=== PATIENT | female | born 1965 | race Caucasian/White ===

== ENCOUNTER → 2023-11-06 | Emergency (ER) | payer OTHER ==
[~2023-11-06] MED LIST: ASPIRIN 325 MG TAB ONE
--- NOTE | 2023-11-06 11:56 | RAD REPORT ---
EXAM DESCRIPTION: CT - Ct Stroke Brain Wo Cont - 11/06/2023 11:44 am CLINICAL HISTORY: STROKE ALERT COMPARISON: No comparisons TECHNIQUE: Noncontrast head CT images were obtained without IV contrast. Multiplanar reformats were generated and reviewed. All CT scans are performed using dose optimization technique as appropriate and may include automated exposure control or mA/KV adjustment according to patient size. FINDINGS: No intracranial hemorrhage, mass, or edema. Midline structures are unremarkable. Normal ventricular caliber for age. Rothman-white matter differentiation is preserved, without evidence of acute infarct. No abnormal extra- axial fluid collections. Mastoid air cells and visualized portions of the paranasal sinuses are clear. No acute bony findings. IMPRESSION: No evidence of an acute intracranial process.
--- NOTE | 2023-11-06 11:58 | RAD REPORT ---
EXAM DESCRIPTION: CT - Head angio - 11/06/2023 11:44 am CLINICAL HISTORY: NUMBNESS COMPARISON: Ct Stroke Brain Wo Cont dated 11/06/2023 TECHNIQUE: Axial CT angiography images of the head was performed with multiplanar and maximum intens ity projection reconstructions. Images performed following intravenous administration of 100mL Isovue 370. All CT scans are performed using dose optimization technique as appropriate and may include automated exposure control or mA/KV adjustment according to patient size. FINDINGS: No evidence of large vessel occlusion. No evidence of aneurysm or dissection flap is detec juvenal. No flow-limiting stenosis or vascular malformation identified. Antegrade flow is seen in the vertebral arteries. The vertebral arteries are codominant. The visualized dural venous sinuses are grossly patent. IMPRESSION: No evidence of large vessel occlusion or flow-limiting stenosis.
--- NOTE | 2023-11-06 12:01 | RAD REPORT ---
EXAM DESCRIPTION: CT - Neck Angio - 11/06/2023 11:44 am CLINICAL HISTORY: NUMBNESS COMPARISON: No comparisons TECHNIQUE: Axial CT angiography images of the head was performed with multiplanar and maximum intens ity projection reconstructions. Images performed following intravenous administration of 100mL Isovue 370. All CT scans are performed using dose optimization technique as appropriate and may include automated exposure control or mA/KV adjustment according to patient size. Quantification of carotid stenosis, if any, is performed according to NASCET criteria. FINDINGS: A left aortic arch is identified with normal three vessel configuration of the great vesse ls. No significant flow abnormality is seen of the common carotid bilaterally. No significant stenosis is identified involving the cervical segments of both internal carotid arteri es. Normal flow is seen within both vertebral arteries. IMPRESSION: No significant flow abnormality of the neck vessels is identified. The findings regarding the entire stroke workup were communicated to Kash Thomson on 11/06/2023 at 11:56 hours. CAROTID STENOSIS REFERENCE USING NASCET CRITERIA: % ICA stenosis = (1 - narrowest ICA diameter/diameter of distal cervical ICA) x 100. Mild - <50% stenosis. Moderate - 50-69% stenosis. Severe - 70-94% stenosis. Near occlusion - 95-99% stenosis. Occluded - 100% stenosis.
[2023-11-06 12:05] LABS: Absolute Lymphocytes (CBC) 1.4 K/uL (0.7-4.9); Hematocrit 37.8 % (36.0-45.0); Lymphocytes % 36.5 % (15.3-44.8); MCV 97.5 fL (80-100); Platelets 249 thou/uL (152-406); RBC Red Blood Cell Count 3.87 M/uL (3.86-4.86)
[2023-11-06 12:15] LABS: Protime INR 1.12
--- NOTE | 2023-11-06 12:17 | RAD REPORT ---
EXAM DESCRIPTION: [place] Single View11/06/2023 12:12 pm CLINICAL HISTORY: numbness COMPARISON: No comparisons TECHNIQUE: Portable AP view of the chest. FINDINGS: The lungs are clear. No pneumothorax or effusion. The cardiomediastinal contours are unre markable. IMPRESSION: No acute cardiopulmonary process.
[2023-11-06 12:31] LABS: ALT/SGPT 16 U/L (13-56); AST/SGOT 22 U/L (15-37); Albumin 3.3 g/dL (3.4-5.0); Alkaline Phosphatase 56 U/L (45-117); BUN Blood Urea Nitrogen 18 mg/dL (7-18); Bicarbonate 26 mEq/L (21-32); Bilirubin Direct 0.1 mg/dL (0-0.2); Bilirubin Indirect, Calculated 0.3 mg/dL (0.2-0.8); Bilirubin Total 0.4 mg/dL (0.2-1.0); Glomerular Filtration Rate 78 ml/min (=/>90); Glucose Level 90 mg/dL (74-106); Magnesium 2.1 mg/dL (1.6-2.4); Potassium 4.2 mEq/L (3.5-5.1); Protein, Total 6.4 g/dL (6.4-8.2); Sodium Level 135 mEq/L (136-145)
[2023-11-06 12:37] LABS: Troponin High Sensitivity < 3.0 pg/mL (<58.9)
--- NOTE | 2023-11-06 13:43 | EDPHYS ---
Physician Documentation [facility] Name: Vilma Dooley Age: 57 yrs Sex: Female : 1965 Arrival Date: 11/06/2023 Time: 11:14 Bed 19 Private MD: ED Physician Kash Thomson HPI: 11/06 14:19 This 57 yrs old Female presents to ER via EMS with complaints of Dizziness, Headache, rt Nausea. 14:19 Patient presents to the ED with about 4 days of numbness. Patient reports a total body rt numbness, worse on the left compared to the right. She was seen at [facility] where she was more dizzy at that time and vertiginous, recommended that she stay in the hospital at home, left subsequently. States that the symptoms have worsened today, however, she is no longer vertiginous. Symptoms are moderate in severity, no other aggravating relieving factors. Historical: - Home Meds: 11:59 atorvastatin 40 mg oral tablet every day at bedtime [Active]; citalopram 40 mg tablet iw daily [Active]; cyclobenzaprine 10 mg Oral tablet 3 times per day [Active]; diclofenac sodium 1 % topical gel 4 times per day [Active]; gabapentin 300 mg oral capsule 3 times per day [Active]; quetiapine 25 mg oral tablet once at bedtime [Active]; varenicline 1 mg oral tablet 2 times per day [Active]; - Immunization history:: Adult Immunizations up to date. - Social history:: Smoking status: unknown. - Family history:: not pertinent. ROS: 14:19 Constitutional: Negative for fever, chills, and weight loss, Cardiovascular: Negative rt for chest pain, palpitations, and edema, Respiratory: Negative for shortness of breath, cough, wheezing, and pleuritic chest pain, Abdomen/GI: Negative for abdominal pain, nausea, vomiting, diarrhea, and constipation, MS/Extremity: Negative for injury and deformity, Skin: Negative for injury, rash, and discoloration, Psych: Negative for depression, anxiety, suicide ideation, homicidal ideation, and hallucinations, 14:19 Neuro: Positive for numbness, speech changes, Exam: 14:19 Constitutional: This is a well developed, well nourished patient who is awake, alert, rt and in no acute distress. Head/Face: Normocephalic, atraumatic. Chest/axilla: Normal chest wall appearance and motion. Nontender with no deformity. No lesions are appreciated. Cardiovascular: Regular rate and rhythm with a normal S1 and S2. No gallops, murmurs, or rubs. Normal PMI, no JVD. No pulse deficits. Respiratory: Lungs have equal breath sounds bilaterally, clear to auscultation and percussion. No rales, rhonchi or wheezes noted. No increased work of breathing, no retractions or nasal flaring. Abdomen/GI: Soft, non-tender, with normal bowel sounds. No distension or tympany. No guarding or rebound. No evidence of tenderness throughout. Skin: Warm, dry with normal turgor. Normal color with no rashes, no lesions, and no evidence of cellulitis. MS/ Extremity: Pulses equal, no cyanosis. Neurovascular intact. Full, normal range of motion. Psych: Awake, alert, with orientation to person, place and time. Behavior, mood, and affect are within normal limits. 14:19 ECG was reviewed by the Attending Physician. 14:19 Neuro: Slight slurred speech, numbness on the left compared to the right on the face, arm, leg. No ataxia [id number], no visual field deficits, cranial nerves II through XII intact otherwise, Vital Signs: 11:32 BP 129 / 86; Pulse 72; Resp 16; Pulse Ox 96% on R/A; iw 13:25 BP 158 / 99; Pulse 72; Resp 16; Pulse Ox 99% on R/A; me1 14:30 BP 126 / 95; Pulse 78; Resp 14; Pulse Ox 99% on R/A; me1 16:30 BP 100 / 86; Pulse 79; Resp 18; Pulse Ox 100% on R/A; me1 MDM: 11:18 Patient medically screened. rt 14:19 Differential diagnosis: CVA, TIA, vertigo, intravascular volume depletion, electrolyte rt disturbance. Data reviewed: vital signs, nurses notes, lab test result(s), EKG, radiologic studies. Consideration of Admission/Observation Patient was admitted/placed on observation. [facility]. Counseling: I had a detailed discussion with the patient and/or guardian regarding the historical points, exam findings, and any diagnostic results supporting the discharge/admit diagnosis, lab results, radiology results, the need for further work-up and treatment in the hospital. 11/06 11:27 Order name: Basic Metabolic Panel; Complete Time: 12:41 rt 11/06 11:27 Order name: CBC with Diff; Complete Time: 12:22 rt 11/06 11:27 Order name: Hepatic Function; Complete Time: 12:41 rt 11/06 11:27 Order name: High Sensitivity Troponin; Complete Time: 12:41 rt 11/06 11:27 Order name: Magnesium; Complete Time: 12:41 rt 11/06 11:27 Order name: Protime (+inr); Complete Time: 12:22 rt 11/06 11:27 Order name: Ptt, Activated; Complete Time: 12:22 rt 11/06 11:27 Order name: TSH; Complete Time: 12:41 rt 11/06 12:00 Order name: CREATININE WHOLE BLOOD; Complete Time: 12:22 EDMS 11/06 11:27 Order name: CT Head Angio; Complete Time: 12:22 rt 11/06 11:27 Order name: CT Neck Angio; Complete Time: 12:22 rt 11/06 11:27 Order name: CT Stroke Brain w/o Contrast; Complete Time: 12:22 rt 11/06 11:27 Order name: Stroke CXR 1 View; Complete Time: 12:22 rt 11/06 11:27 Order name: EKG; Complete Time: 11:27 rt 11/06 11:27 Order name: Accucheck; Complete Time: 13:19 rt 11/06 11:27 Order name: Cardiac monitoring; Complete Time: 13:19 rt 11/06 11:27 Order name: EKG - Nurse/Tech; Complete Time: 13:19 rt 11/06 11:27 Order name: IV Saline Lock; Complete Time: 12:00 rt 11/06 11:27 Order name: Labs collected and sent; Complete Time: 12:00 rt 11/06 11:27 Order name: NPO; Complete Time: 13:19 rt 11/06 11:27 Order name: O2 Per Protocol; Complete Time: 12:00 rt 11/06 11:27 Order name: O2 Sat Monitoring; Complete Time: 12:00 rt 11/06 11:27 Order name: Stroke Swallow Screen; Complete Time: 13:19 rt EC:19 Rate is 71 beats/min. Rhythm is regular, Normal Sinus Rhythm with No ectopy. QRS [place] rt is Normal. [place] interval is normal. QRS interval is normal. QT interval is normal. No Q waves. T waves are Normal. No ST changes noted. Interpreted by me. Administered Medications: 15:57 Drug: Aspirin PO 325 mg PO once Route: PO; me1 16:23 Follow up: Response: No adverse reaction me1 18:01 Follow up: Response: No adverse reaction me1 Disposition Summary: 11/06/23 13:42 Transfer Ordered Notes: Transfer Location: [facility] rt Reason: Patient request rt Condition: Stable rt Problem: new rt Symptoms: are unchanged rt Accepting Physician: (11/06/23 18:01) me1 Diagnosis - Left-sided numbness rt Forms: - Medication Reconciliation Form rt - SBAR form rt Signatures: Dispatcher [employer] Yolette Riggs RN RN iw Kash Thomson MD MD rt Batool Campbell RN RN me1 Corrections: (The following items were deleted from the chart) 18: 13:42 rt me1
--- NOTE | 2023-11-06 13:43 | ER ---
Nurse's Notes [facility] Name: Vilma Dooley Age: 57 yrs Sex: Female : 1965 Arrival Date: 11/06/2023 Time: 11:14 Bed 19 Private MD: Diagnosis: Left-sided numbness Presentation: 11/06 11:18 Chief complaint: EMS states: headache, dizziness, nausea, since Saturday, was seen at [facility] ER and had head CT and it was negative, she went to [place] today for check up and they sent her to ER for evaluation for possible stroke. Coronavirus screen: At this time, the client does not indicate any symptoms associated with coronavirus-19. Ebola Screen: Patient negative for fever greater than or equal to 101.5 degrees Fahrenheit, and additional compatible Ebola Virus Disease symptoms Patient denies exposure to infectious person. Patient denies travel to an Ebola-affected area in the 21 days before illness onset. No symptoms or risks identified at this time. Risk Assessment: Do you want to hurt yourself or someone else? Patient reports no desire to harm self or others. Onset of symptoms was November 01, 2022. 11:18 Method Of Arrival: EMS: [facility] 11:18 Acuity: ESE 3 iw 11:21 Initial Sepsis Screen: Does the patient meet any 2 criteria? No. Patient's initial iw sepsis screen is negative. Does the patient have a suspected source of infection? No. Patient's initial sepsis screen is negative. 12:21 Care prior to arrival: IV initiated. 20 GA, in the right antecubital area. iw Triage Assessment: 11:20 General: Appears in no apparent distress. Behavior is calm, cooperative. Pain: iw Complains of pain in head. Neuro: Level of Consciousness is awake, alert, obeys commands, Oriented to person, place, time, situation, Moves all extremities. Full function Reports dizziness, headache. Cardiovascular: Patient's skin is warm and dry. Respiratory: Respiratory effort is even, unlabored, Respiratory pattern is regular. GI: Reports nausea. Derm: Skin is intact, is healthy with good turgor. Musculoskeletal: Range of motion: intact in all extremities. 16:57 Headache History: The patient has had previous headaches and this one is less severe me1 than previous episodes. Pain: Also complains of no other associated symptoms. Historical: - Home Meds: 11:59 atorvastatin 40 mg oral tablet every day at bedtime [Active]; citalopram 40 mg tablet iw daily [Active]; cyclobenzaprine 10 mg Oral tablet 3 times per day [Active]; diclofenac sodium 1 % topical gel 4 times per day [Active]; gabapentin 300 mg oral capsule 3 times per day [Active]; quetiapine 25 mg oral tablet once at bedtime [Active]; varenicline 1 mg oral tablet 2 times per day [Active]; - Immunization history:: Adult Immunizations up to date. - Social history:: Smoking status: unknown. - Family history:: not pertinent. Screenin:22 [facility] ED Fall Risk Assessment (Adult) History of falling in the last 3 months, me1 including since admission No falls in past 3 months (0 pts) Confusion or Disorientation No (0 pts) Intoxicated or Sedated No (0 pts) Impaired Gait No (0 pts) Mobility Assist Device Used No (0 pt) Altered Elimination No (0 pt) Score/Fall Risk Level 0 - 2 = Low Risk Maintained a safe environment, Provided non-skid footwear, Hourly rounding (assess needs \T\ fall precautionary measures) done. Abuse screen: Denies threats or abuse. Nutritional screening: No deficits noted. Tuberculosis screening: No symptoms or risk factors identified. Assessment: 13:20 General: Appears uncomfortable, well groomed, well developed, well nourished, Behavior me1 is calm, cooperative, appropriate for age, Reports headache, dizziness, nausea, since Titi, was seen at [place] ER and had head CT and it was negative, [facility] for evaluation for possible stroke. Pain: Complains of pain in head Pain does not radiate. Pain currently is 4 out of 10 on a pain scale. Quality of pain is described as aching, Pain began suddenly, 2-3 days ago. Is continuous. Neuro: Level of Consciousness is awake, alert, obeys commands, Oriented to person, place, time, situation, Appropriate for age. Cardiovascular: Capillary refill < 3 seconds Patient's skin is warm and dry. Respiratory: Airway is patent Respiratory effort is even, unlabored, Respiratory pattern is regular, symmetrical. 13:23 Neuro: Reports dizziness, since Titi. GI: Reports nausea. me1 15:09 Neuro: Reports numbness since Saturday. c/o total body numbness worse on the left. me1 Vital Signs: 11:32 BP 129 / 86; Pulse 72; Resp 16; Pulse Ox 96% on R/A; iw 13:25 BP 158 / 99; Pulse 72; Resp 16; Pulse Ox 99% on R/A; me1 14:30 BP 126 / 95; Pulse 78; Resp 14; Pulse Ox 99% on R/A; me1 16:30 BP 100 / 86; Pulse 79; Resp 18; Pulse Ox 100% on R/A; me1 ED Course: 11:18 Patient arrived in ED. iw 11:18 Kash Thomson MD is Attending Physician. rt 11:18 Arm band placed on Patient placed in an exam room. me1 11:21 Triage completed. iw 11:45 CT Head Angio In Process Unspecified. EDMS 11:45 CT Neck Angio In Process Unspecified. EDMS 11:46 CT Stroke Brain w/o Contrast In Process Unspecified. EDMS 12:13 Yolette Pierre, RN is Primary Nurse. iw 12:14 Stroke CXR 1 View In Process Unspecified. EDMS 12:22 Maintain EMS IV. Dressing intact. Good blood return noted. Site clean \T\ dry. Gauge \T\ iw site: 20 RAC. 12:47 Batool Campbell, RN is Primary Nurse. me1 13:20 No provider procedures requiring assistance completed. me1 13:20 Patient has correct armband on for positive identification. Bed in low position. Call me1 light in reach. Side rails up X2. Provided Education on: POC. Verbalized understanding. . 13:46 initiated transfer to [facility], faxed chart to [place] ER as requested by transfer center.bd 16:21 pt accepted in transfer to [facility] by Dr Peña, admin approval given by Alessandra Robbins, pt going to ER. 16:57 Patient transferred, IV remains in place. me1 17:04 contacted EMS to transport pt to [place] was told by Yusuf that they will be changing bd shifts soon and will not be avaliable for 1 1/2 hrs, per Yusuf. [facility] em[facility] will transport pt, will be here in 30 min. Administered Medications: 15:57 Drug: Aspirin PO 325 mg PO once Route: PO; me1 16:23 Follow up: Response: No adverse reaction me1 18:01 Follow up: Response: No adverse reaction me1 Medication: 13:20 VIS not applicable for this client. me1 Outcome: 13:42 ER care complete, transfer ordered by . rt 16:53 Transferred by ground EMS to [facility] Transfer form completed. me1 Note: Report given to MARIAA Dooley 16:53 Condition: stable 16:53 Condition: stable 16:53 Instructed on the need for transfer, 18:01 Patient left the ED. me1 Signatures: Dispatcher [employer] EDMS Polly Romero Irene, RN RN iw Kash Thomson MD MD rt Batool Campbell RN RN me1 Corrections: (The following items were deleted from the chart) 13:20 11:18 Chief complaint: EMS states: headache, dizziness, nausea, since Titi, was seen me1 at [place] ER and had head CT and it was negative, [place] went to [place] today for check up and they sent her to ER for evaluation for possible stroke iw 15:10 13:20 General: Appears uncomfortable, well groomed, well developed, well nourished, me1 Behavior is calm, cooperative, appropriate for age, Reports headache, dizziness, nausea, since Titi, was seen at [place] ER and had head CT and it was negative, she went to [place] today for check up and they sent her to ER for evaluation for possible stroke me1
[2023-11-06 18:36] VITALS: BP 100/86; O2SAT 100
== END ==
LOC: ER 11:14
DX: R20.0 Anesthesia of skin (principal); R42 Dizziness and giddiness
CPT/HCPCS: 85025; 80048; 36415; 83735; 85610; 82565; 80076; 85730; 84443; 84484; 70496; 70498; 70450; 71045; Q9967; 93005